=== PATIENT | female | born 1995 | race Caucasian/White ===

== ENCOUNTER → 2019-03-30 23:12 | Emergency (ER) | payer BC ==
[2019-03-30 23:17] VITALS: BP 123/69
--- NOTE | 2019-03-30 23:32 | ED ---
Skin Complaint - HPI Summary HPI Summary: 23-year-old female presents with rash today. She states that she got a tattoo two day agos. she states notice rash today. She denies any itchiness. Is not burning. She states it just feels tight. She denies any history of cellulitis. Has no medical conditions. redness has not been spreading. No fevers or chills. denies any chest pain, sob, abdominal pain. no sore throat, nausea or vomiting. has never had colored ink before for a tattoo. - History of Current Complaint Chief Complaint: EDRashSkinAbscess Time Seen by Provider: 03/30/19 23:24 Stated Complaint: UZAIR GOT RED SPREADING DOWN MY ARM PER PT Pain Intensity: 6 - Allergy/Home Medications Allergies/Adverse Reactions: Allergies Allergy/AdvReac Type Severity Reaction Status Date / Time No Known Allergies Allergy Verified 03/30/19 23:18 Home Medications: Home Medications Phendimetrazine Tartrate 70 mg PO BID 03/30/19 [History Confirmed 03/30/19] PMH/Surg Hx/FS Hx/Imm Hx Endocrine/Hematology History: Denies: Hx Anticoagulant Therapy Respiratory History: Denies: Hx Asthma Infectious Disease History: No Infectious Disease History: Denies: Traveled Outside the [place] in Last 30 Days - Family History Known Family History: Positive: Non-Contributory - Social History Alcohol Use: Occasionally Substance Use Type: Reports: None Review of Systems Negative: Fever Negative: Chest Pain Negative: Shortness Of Breath Positive: Rash All Other Systems Reviewed And Are Negative: Yes Physical Exam Triage Information Reviewed: Yes Vital Signs On Initial Exam: Initial Vitals Temp Pulse Resp BP Pulse Ox 98.4 F 73 16 123/69 97 03/30/19 23:13 03/30/19 23:13 03/30/19 23:13 03/30/19 23:13 03/30/19 23:13 Vital Signs Reviewed: Yes Appearance: Positive: Well-Appearing Skin: Positive: Warm, Dry, Other - tattoo present on right forearm, trace macular rash near tattoo without warmth to the area, Head/Face: Positive: Normal Head/Face Inspection Eyes: Positive: Normal, Conjunctiva Clear ENT: Positive: Pharynx normal Respiratory/Lung Sounds: Positive: Clear to Auscultation, Breath Sounds Present Cardiovascular: Positive: Normal, RRR Musculoskeletal: Positive: Normal Neurological: Positive: Normal Psychiatric: Positive: Normal Diagnostics - Vital Signs Vital Signs Temp Pulse Resp BP Pulse Ox 03/30/19 23:13 98.4 F 73 16 123/69 97 - Laboratory Lab Statement: Any lab studies that have been ordered have been reviewed, and results considered in the medical decision making process. Course/Dx - Course Course Of Treatment: 23-year-old female presents with rash today. She states that she got a tattoo two day agos. she states notice rash today. She denies any itchiness. Is not burning. She states it just feels tight. She denies any history of cellulitis. Has no medical conditions. redness has not been spreading. No fevers or chills. On exam has faint macular rash near tattoo on right arm. The area is not warm to touch. Appears more like an allergic type rash rather than a cellulitis. We'll have her try Benadryl to treat the rash. sent script for keflex in case is early cellulitis. told if develop warmth to rash or spreads and becomes more red as is faint at this time to start the Keflex. Patient understands agrees with plan. - Differential Diagnoses - Skin Complaint Differential Diagnoses: Allergic Reaction, Cellulitis, Contact Dermatitis - Diagnoses Provider Diagnoses: Rash Discharge - Sign-Out/Discharge Documenting (check all that apply): Patient Departure Patient Received Moderate/Deep Sedation with Procedure: No - Discharge Plan Condition: Good Disposition: HOME Prescriptions: Cephalexin CAP* [Keflex CAP*] 500 mg PO BID #14 cap Referrals: Edmar Espinoza MD [Primary Care Provider] - Additional Instructions: at this time appears more like an allergic reaction, can take bendaryl every 6 hours as needed for itching or redness If becomes more red with spread redness or warm to touch start keflex twice a day for 7 days Return to ED if develop any new or worsening symptoms - Billing Disposition and Condition Condition: GOOD Disposition: Home
== END | disposition home or self-care (01) ==
LOC: ED 23:12
DX: R21 Rash and other nonspecific skin eruption (principal)
CPT/HCPCS: 99281

== ENCOUNTER 2019-06-10 01:34 | Emergency (ER) | payer SELFPAY ==
[2019-06-10] MEDS ORDERED: NS 0.9% 1000 ML** 1,000 ML IV ONE (02:18)
[2019-06-10] MEDS ORDERED: Metoclopramide IV* 5 MG/ML 2 ML VIAL IV SLOW PU ONE (02:18)
[2019-06-10] MEDS ORDERED: Famotidine IV* 10 MG/ML 2 ML (20 mg) IV SLOW PU ONE (02:18)
[2019-06-10] MEDS ORDERED: Dicyclomine CAP* 10 MG PO ONE (02:19)
--- NOTE | 2019-06-10 02:24 | ED ---
Abdominal Pain/Female - HPI Summary HPI Summary: This patient is a 24 year old F presenting to ED with a chief complaint of abdominal pain since 2329 yesterday. The pain is described as cramping. The patient rates the pain 4/10 in severity. Symptoms aggravated by nothing. Symptoms alleviated by nothing. Patient reports V/D. Patient denies fever. - History of Current Complaint Chief Complaint: EDNauseaVomitDiarrh Stated Complaint: STOMACH CRAMPS AND VOMITING PER PT Time Seen by Provider: 06/10/19 02:11 Hx Obtained From: Patient Onset/Duration: Sudden Onset, Lasting Hours - Since 2329 yesterday, Still Present Timing: Constant Severity Initially: Moderate Severity Currently: Moderate Pain Intensity: 4 Pain Scale Used: 0-10 Numeric Character: Cramping Aggravating Factor(s): Nothing Alleviating Factor(s): Nothing Associated Signs and Symptoms: Positive: Vomiting, Diarrhea Allergies/Adverse Reactions: Allergies Allergy/AdvReac Type Severity Reaction Status Date / Time No Known Allergies Allergy Verified 06/10/19 01:37 Home Medications: Home Medications NK [No Home Medications Reported] 06/10/19 [History Confirmed 06/10/19] PMH/Surg Hx/FS Hx/Imm Hx Endocrine/Hematology History: Denies: Hx Anticoagulant Therapy Respiratory History: Denies: Hx Asthma Sensory History: Denies: Hx Legally Blind, Hx Deafness Opthamlomology History: Denies: Hx Legally Blind EENT History: Denies: Hx Deafness - Surgical History Surgery Procedure, Year, and Place: Denies Infectious Disease History: No Infectious Disease History: Denies: Traveled Outside the [place] in Last 30 Days - Family History Known Family History: Positive: Non-Contributory - Social History Alcohol Use: Occasionally Hx Substance Use: No Substance Use Type: Reports: None Hx Tobacco Use: No Smoking Status (MU): Never Smoked Tobacco Review of Systems Negative: Fever Positive: Abdominal Pain, Diarrhea, Nausea All Other Systems Reviewed And Are Negative: Yes Physical Exam - Summary Physical Exam Summary: VITAL SIGNS: Reviewed. GENERAL: Patient is a well-developed and nourished female who is lying comfortable in the stretcher. Patient is not in any acute respiratory distress. HEAD AND FACE: No signs of trauma. No ecchymosis, hematomas or skull depressions. No sinus tenderness. EYES: PERRLA, EOMI x 2, No injected conjunctiva, no nystagmus. EARS: Hearing grossly intact. Ear canals and tympanic membranes are within normal limits. MOUTH: Oropharynx within normal limits. NECK: Supple, trachea is midline, no adenopathy, no JVD, no carotid bruit, no c- spine tenderness, neck with full ROM CHEST: Symmetric, no tenderness at palpation LUNGS: Clear to auscultation bilaterally. No wheezing or crackles. CVS: Regular rate and rhythm, S1 and S2 present, no murmurs or gallops appreciated. ABDOMEN: Soft, non-tender. No signs of distention. No rebound no guarding, and no masses palpated. Bowel sounds are normal. EXTREMITIES: FROM in all major joints, no edema, no cyanosis or clubbing. NEURO: Alert and oriented x 3. No acute neurological deficits. Speech is normal and follows commands. SKIN: Dry and warm Triage Information Reviewed: Yes Vital Signs On Initial Exam: Initial Vitals Temp Pulse Resp BP Pulse Ox 97.7 F 75 16 125/59 99 06/10/19 01:36 06/10/19 01:36 06/10/19 01:36 06/10/19 01:36 06/10/19 01:36 Vital Signs Reviewed: Yes Diagnostics - Vital Signs Vital Signs Temp Pulse Resp BP Pulse Ox 06/10/19 01:36 97.7 F 75 16 125/59 99 - Laboratory Result Diagrams: 06/10/19 02:29 06/10/19 02:29 Lab Statement: Any lab studies that have been ordered have been reviewed, and results considered in the medical decision making process. - CT A/P CT Interpretation Completed By: Radiologist Summary of CT Findings: 1. Involuting possibly hemorrhagic right ovarian corpus luteal cyst. Trace adjacent free fluid. 2. Thickening of the urinary bladder wall likely reflecting underdistention. Cystitis is not entirely excluded. Correlate with urinalysis. 3. No bowel obstruction. Normal appendix. 4. No hydronephrosis or nephrolithiasis bilaterally. Dr. Dixon has reviewed this radiology report. Abdominal Pain Fem Course/Dx - Course Course Of Treatment: This patient is a 24 year old F presenting to ED with a chief complaint of abdominal pain since 2330 yesterday. In the ED course, patient received Bentyl, Pepcid, Reglan, and fluids. Blood work and UA obtained. CT A/P revealed 1. Involuting possibly hemorrhagic right ovarian corpus luteal cyst. Trace adjacent free fluid. 2. Thickening of the urinary bladder wall likely reflecting underdistention. Cystitis is not entirely excluded. Correlate with urinalysis. 3. No bowel obstruction. Normal appendix. 4. No hydronephrosis or nephrolithiasis bilaterally. Patient will be discharged home with dx of gastroenteritis. Patient understands and agrees with this plan. - Diagnoses Provider Diagnoses: Gastroenteritis Discharge - Sign-Out/Discharge Documenting (check all that apply): Patient Departure - Discharge Patient Received Moderate/Deep Sedation with Procedure: No - Discharge Plan Condition: Stable Disposition: HOME Patient Education Materials: Gastroenteritis (ED) Referrals: Edmar Espinoza MD [Primary Care Provider] - 2 Days Additional Instructions: Follow-up with your primary care provider in 2-3 days. RETURN TO THE ER FOR WORSENING OR CHANGING SYMPTOMS. - Billing Disposition and Condition Condition: STABLE Disposition: Home - Attestation Statements Document Initiated by Scribe: Yes Documenting Scribe: Ash Castro Provider For Whom Marcia is Documenting (Include Credential): Yordan Dixon MD Scribe Attestation: Ash Valdes, scribed for Yordan Dixon MD on 06/10/19 at 1944. Scribe Documentation Reviewed: Yes Provider Attestation: The documentation as recorded by the Ash rocha accurately reflects the service I personally performed and the decisions made by , Yordan Dixon MD Status of Scribe Document: Viewed
[2019-06-10 02:38] LABS: ABS Eosinophils 0.6 10^3/ul (0-0.6); ABS Lymphocytes 2.1 10^3/ul (1.0-4.8); ABS Neutrophils 10.5 10^3/ul (1.5-7.7); Eosinophil % 3.9 %; Hematocrit 41 % (35-47); Hemoglobin 13.7 g/dL (12.0-16.0); Lymphocyte % 14.9 %; Mean Corpuscular HGB Conc 33 g/dL (31-36); Mean Corpuscular Hemoglobin 31 pg (27-31); Mean Corpuscular Volume 92 fL (80-97); Platelet Count 246 10^3/uL (150-450); Red Blood Count 4.49 10^6 /uL (3.70-4.87); Red Cell Distribution Width 15 % (10-15); White Blood Count 14.3 10^3/uL (3.5-10.8)
[2019-06-10 02:54] LABS: ALT 19 U/L (7-52); AST 16 U/L (13-39); Albumin/Globulin Ratio 1.3 (1-3); Alkaline Phosphatase 55 U/L (34-104); Amylase 60 U/L (29-103); Anion Gap 5 mmol/L (2-11); BUN/Creatinine Ratio 19.4 (8-20); Blood Urea Nitrogen 14 mg/dL (6-24); C Reactive Protein < 1.00 mg/L (<8.01); CO2 Carbon Dioxide 27 mmol/L (22-32); Calcium 9.3 mg/dL (8.6-10.3); Chloride 106 mmol/L (101-111); EGFR African American 121.5 (>60); EGFR Non-African American 100.4 (>60); Globulin 3.1 g/dL (2-4); Glucose 112 mg/dL (70-100); Potassium 4.2 mmol/L (3.5-5.0); Sodium 138 mmol/L (135-145); Total Protein 7.1 g/dL (6.4-8.9)
[2019-06-10 03:00] LABS: HCG Pregnancy < 0.60 mIU/mL
[2019-06-10] MEDS ORDERED: Iohexol 300* (CONTRAST) 10 ML SDV IV ONE (03:54)
[2019-06-10 04:06] LABS: Urine Appearance Clear; Urine Bilirubin Negative (Negative); Urine Blood Negative (Negative); Urine Color Yellow; Urine Glucose Negative (Negative); Urine Ketones Negative (Negative); Urine Nitrite Negative (Negative); Urine Protein Negative (Negative); Urine Specific Gravity 1.021 (1.010-1.030); Urine Urobilinogen Negative (Negative)
[2019-06-10 05:53] VITALS: BP 104/62
== END 2019-06-10 05:52 | disposition home or self-care (01) ==
LOC: ED 01:34
DX: K52.9 Noninfective gastroenteritis and colitis, unspecified (principal)
CPT/HCPCS: 36415; 74177; 80053; 81003; 82150; 83690; 84702; 85025; 86140; 96361; 96374; 96375; 99282; A9270-GY; J2765; Q9967